=== PATIENT | male | born 1950 | race Caucasian/White ===

== ENCOUNTER 2024-03-17 11:38 | Observation (INO) | payer MEDICARE, BC ==
[2024-03-17] MEDS ORDERED: Sodium Chloride 0.9% 10 ML Syringe FLUSH PRN ×2 (11:47→11:52)
[2024-03-17] MEDS: Iopamidol 755 Mg/ML 100 ML Bottle IVPUSH ONE (12:06)
[2024-03-17] MEDS ORDERED: Sodium Chloride 0.9% 100 ML IV SCH (12:15)
[2024-03-17 12:54] LABS: BASOPHILS ABSOLUTE AUTO 0.1 K/mm3 (0.0-0.2); BASOPHILS PERCENT AUTO 0.6 % (0.0-1.0); EOSINOPHILS ABSOLUTE AUTO 0.1 K/mm3 (0.0-0.4); EOSINOPHILS PERCENT AUTO 0.6 % (0.0-6.0); HEMATOCRIT 44.7 % (42.0-52.0); HEMOGLOBIN 14.7 gm/dl (14.0-18.0); IMMATURE GRAN ABSOLUTE AUTO 0.03 K/mm3 (0.00-0.05); IMMATURE GRAN PERCENT AUTO 0.3 % (0.0-0.4); MEAN CORPUSCULAR HEMOGLOBIN 30.1 pg (28.0-32.0); MEAN CORPUSCULAR HGB CONC 32.9 g/dl (32.0-36.0); MEAN CORPUSCULAR VOLUME 91.4 fl (83.0-99.0); MEAN PLATELET VOLUME 9.3 fl (9.4-12.4); MONOCYTES ABSOLUTE AUTO 0.5 K/mm3 (0.0-0.8); MONOCYTES PERCENT AUTO 4.2 % (0.0-8.0); NEUTROPHILS ABSOLUTE AUTO 9.2 K/mm3 (1.8-7.7); NEUTROPHILS PERCENT AUTO 85.3 % (41.0-71.0); PLATELET COUNT,PLT 316 K/mm3 (150-400); RED BLOOD CELL COUNT 4.89 M/mm3 (4.52-5.90); WHITE BLOOD CELL COUNT,WBC 10.77 K/mm3 (3.9-11.3)
[2024-03-17 13:03] LABS: INR 1.07; PROTHROMBIN TIME 11.3 SECONDS (9.7-12.0)
[2024-03-17 13:08] LABS: ALBUMIN 3.5 g/dl (3.4-5.0); ANION GAP 12.4 (5-15); BILIRUBIN TOTAL 0.5 mg/dL (0.2-1.0); BUN/CREATININE RATIO 17.7 (14-18); CALCIUM 8.8 mg/dL (8.5-10.1); CREATININE 1.3 mg/dL (0.7-1.3); EST CRCL DRUG DOSING (CG) 55.49 mL/min; MAGNESIUM 1.9 mg/dL (1.8-2.4); POTASSIUM,K 4.4 mEq/L (3.5-5.1); PROTEIN TOTAL,TP 6.9 g/dl (6.4-8.2)
[2024-03-17] MEDS: Sodium Chloride 0.9% 500 ML IV SCH (13:15)
[2024-03-17 13:47] LABS: APPEARANCE,URINE CLEAR (Clear); BILIRUBIN,URINE NEGATIVE (Negative); COLOR,URINE YELLOW (Yellow); GLUCOSE,URINE NEGATIVE (Negative); KETONES,URINE NEGATIVE (Negative); LEUKOCYTE ESTERASE,URINE NEGATIVE (Negative); NITRITE,URINE NEGATIVE (Negative); OCCULT BLOOD,URINE NEGATIVE (Negative); PH,URINE 7.5 (5.0-8.0); PROTEIN,URINE NEGATIVE (Negative); UROBILINOGEN,URINE 0.2 (0.2-1.0)
[2024-03-17] MEDS: Clopidogrel 75 MG Tab PO ONE (14:29)
[2024-03-17] MEDS: Aspirin 81 MG Tab.Chew PO ONE (14:29)
[2024-03-17] MEDS: atorvaSTATin 40 MG Tab PO ONE (14:29)
[2024-03-17 14:55] LABS: CHOLESTEROL HDL 54 mg/dL (40-59); CHOLESTEROL LDL DIRECT 136 mg/dL (<100); CHOLESTEROL TOTAL 205 mg/dL (<200); TRIGLYCERIDES 92 mg/dL (<150)
[2024-03-17] MEDS ORDERED: Docusate Sodium 100 MG Cap PO PRN (14:58)
[2024-03-17] MEDS ORDERED: Ondansetron 4 MG Tab.DIS PO PRN (14:58)
[2024-03-17] MEDS ORDERED: Acetaminophen 325 MG Tab PO PRN (14:58)
[2024-03-17 15:39] LABS: TSH 1.7 uIU/mL (0.358-3.74)
[2024-03-17 16:31] LABS: HEMOGLOBIN A1C 5.9 %
[2024-03-18 05:32] LABS: BASOPHILS ABSOLUTE AUTO 0.1 K/mm3 (0.0-0.2); EOSINOPHILS ABSOLUTE AUTO 0.2 K/mm3 (0.0-0.4); EOSINOPHILS PERCENT AUTO 2.9 % (0.0-6.0); HEMATOCRIT 41.6 % (42.0-52.0); HEMOGLOBIN 13.7 gm/dl (14.0-18.0); IMMATURE GRAN ABSOLUTE AUTO 0.02 K/mm3 (0.00-0.05); IMMATURE GRAN PERCENT AUTO 0.3 % (0.0-0.4); LYMPHOCYTES ABSOLUTE AUTO 1.2 K/mm3 (1.0-4.8); MEAN CORPUSCULAR HEMOGLOBIN 29.8 pg (28.0-32.0); MEAN CORPUSCULAR HGB CONC 32.9 g/dl (32.0-36.0); MEAN CORPUSCULAR VOLUME 90.4 fl (83.0-99.0); MEAN PLATELET VOLUME 9.2 fl (9.4-12.4); MONOCYTES ABSOLUTE AUTO 0.5 K/mm3 (0.0-0.8); MONOCYTES PERCENT AUTO 6.6 % (0.0-8.0); NEUTROPHILS ABSOLUTE AUTO 5.3 K/mm3 (1.8-7.7); NEUTROPHILS PERCENT AUTO 73.2 % (41.0-71.0); PLATELET COUNT,PLT 307 K/mm3 (150-400); WHITE BLOOD CELL COUNT,WBC 7.25 K/mm3 (3.9-11.3)
[2024-03-18 05:52] LABS: BILIRUBIN TOTAL 0.6 mg/dL (0.2-1.0); BUN/CREATININE RATIO 16.2 (14-18); CALCIUM 8.6 mg/dL (8.5-10.1); CREATININE 1.3 mg/dL (0.7-1.3); EST CRCL DRUG DOSING (CG) 50.56 mL/min; PROTEIN TOTAL,TP 6.1 g/dl (6.4-8.2)
[2024-03-18 08:41] VITALS: BP 150/93; PULSE 75
[2024-03-18] MEDS: Clopidogrel 75 MG Tab PO SCH (08:51)
[2024-03-18] MEDS: Aspirin 81 MG Tab.Chew PO SCH (08:51)
[2024-03-18] MEDS ORDERED: atorvaSTATin 40 MG Tab PO SCH (21:00)
== END 2024-03-18 10:31 | disposition home or self-care (01) ==
LOC: JD.ED 11:38 → INTOOBSV 14:27 → JD.MS 14:27
PROVIDERS: ADMIT Family Medicine; ATTEND Family Medicine
DX: G45.9 Transient cerebral ischemic attack, unspecified (principal); I67.9 Cerebrovascular disease, unspecified; I10 Essential (primary) hypertension; R73.9 Hyperglycemia, unspecified; F17.210 Nicotine dependence, cigarettes, uncomplicated; Z85.46 Personal history of malignant neoplasm of prostate; Z79.82 Long term (current) use of aspirin; Z79.899 Other long term (current) drug therapy; Z88.0 Allergy status to penicillin; Z88.8 Allergy status to other drugs, medicaments and biological substances
CPT/HCPCS: 36415; 70450; 70496; 70498; 70551; 80053; 80061; 81003; 82947; 83036; 83735; 84443; 84484; 85025; 85610; 85730; 93005; A9270; G0378; J7040; Q9967

== ENCOUNTER 2024-10-28 21:50 | Emergency (ER) | payer MEDICARE, BC ==
[2024-10-28 21:58] VITALS: BP 135/83; PULSE 80
[2024-10-28] MEDS: Oxymetazoline 0.05% Nasal Spray 30 ML Bottle NAS ONE (22:29)
== END 2024-10-29 01:03 | disposition home or self-care (01) ==
LOC: JD.ED 21:50
DX: R04.0 Epistaxis (principal); I10 Essential (primary) hypertension; E78.00 Pure hypercholesterolemia, unspecified; F17.210 Nicotine dependence, cigarettes, uncomplicated; Z79.82 Long term (current) use of aspirin; Z79.899 Other long term (current) drug therapy; Z88.8 Allergy status to other drugs, medicaments and biological substances; Z88.0 Allergy status to penicillin
CPT/HCPCS: 99283; A9270

== ENCOUNTER 2024-10-30 23:01 | Emergency (ER) | payer MEDICARE, BC ==
[2024-10-31] MEDS ORDERED: Sodium Chloride 0.9% 10 ML Syringe FLUSH PRN (00:44)
[2024-10-31 00:53] LABS: BASOPHILS ABSOLUTE AUTO 0.1 K/mm3 (0.0-0.2); BASOPHILS PERCENT AUTO 0.7 % (0.0-1.0); EOSINOPHILS ABSOLUTE AUTO 0.4 K/mm3 (0.0-0.4); EOSINOPHILS PERCENT AUTO 3.5 % (0.0-6.0); IMMATURE GRAN ABSOLUTE AUTO 0.02 K/mm3 (0.00-0.05); IMMATURE GRAN PERCENT AUTO 0.2 % (0.0-0.4); LYMPHOCYTES ABSOLUTE AUTO 2.2 K/mm3 (1.0-4.8); LYMPHOCYTES PERCENT AUTO 21.6 % (24.0-44.0); MEAN PLATELET VOLUME 9.1 fl (9.4-12.4); MONOCYTES ABSOLUTE AUTO 0.8 K/mm3 (0.0-0.8); MONOCYTES PERCENT AUTO 7.5 % (0.0-8.0); NEUTROPHILS ABSOLUTE AUTO 6.8 K/mm3 (1.8-7.7); NEUTROPHILS PERCENT AUTO 66.5 % (41.0-71.0); NRBC ABSOLUTE 0.00 (0.00-0.02); NRBC PERCENT 0.0 % (0.0-0.2); PLATELET COUNT,PLT 366 K/mm3 (150-400); RED BLOOD CELL COUNT 4.85 M/mm3 (4.52-5.90); WHITE BLOOD CELL COUNT,WBC 10.19 K/mm3 (3.9-11.3)
[2024-10-31 01:14] LABS: A/G RATIO 1.0 (1-2); ALANINE AMINOTRANSFERASE,ALT 28 U/L (16-63); ASPARTATE AMNIOTRANSFERASE,AST 15 U/L (15-37); BILIRUBIN TOTAL 0.4 mg/dL (0.2-1.0); BLOOD UREA NITROGEN,BUN 26 mg/dL (7-18); CARBON DIOXIDE,CO2 28 mEq/L (21-32); CHLORIDE,CL 104 mEq/L (98-107); CREATININE 1.1 mg/dL (0.7-1.3); ESTIMATED GFR 70 mL/min (>60); GLUCOSE RANDOM 107 mg/dL (70-99); POTASSIUM,K 3.9 mEq/L (3.5-5.1); PROTEIN TOTAL,TP 7.4 g/dl (6.4-8.2); SODIUM,NA 141 mEq/L (136-145)
[2024-10-31] MEDS: Iopamidol 612 MG/ML 100 ML Bottle IVPUSH ONE (02:00)
[2024-10-31 04:10] VITALS: BP 153/85; PULSE 75
== END 2024-10-31 04:00 | disposition home or self-care (01) ==
LOC: JD.ED 23:01
DX: R04.0 Epistaxis (principal); H60.92 Unspecified otitis externa, left ear; E78.00 Pure hypercholesterolemia, unspecified; I10 Essential (primary) hypertension; Z88.8 Allergy status to other drugs, medicaments and biological substances; Z88.0 Allergy status to penicillin; Z79.82 Long term (current) use of aspirin; Z79.899 Other long term (current) drug therapy
CPT/HCPCS: 36415; 70450; 70487; 80053; 85025; 96361; 96374; 99284; A9270; J7030; Q9967; J1171

== ENCOUNTER 2024-11-20 08:24 | Emergency (ER) | payer MEDICARE, BC ==
[2024-11-20] MEDS ORDERED: Sodium Chloride 0.9% 10 ML Syringe FLUSH PRN (08:48)
[2024-11-20 09:25] LABS: BASOPHILS ABSOLUTE AUTO 0.1 K/mm3 (0.0-0.2); BASOPHILS PERCENT AUTO 1.2 % (0.0-1.0); EOSINOPHILS ABSOLUTE AUTO 0.2 K/mm3 (0.0-0.4); EOSINOPHILS PERCENT AUTO 2.9 % (0.0-6.0); IMMATURE GRAN ABSOLUTE AUTO 0.02 K/mm3 (0.00-0.05); IMMATURE GRAN PERCENT AUTO 0.3 % (0.0-0.4); LYMPHOCYTES ABSOLUTE AUTO 1.0 K/mm3 (1.0-4.8); LYMPHOCYTES PERCENT AUTO 15.0 % (24.0-44.0); MEAN PLATELET VOLUME 8.6 fl (9.4-12.4); MONOCYTES ABSOLUTE AUTO 0.4 K/mm3 (0.0-0.8); MONOCYTES PERCENT AUTO 5.8 % (0.0-8.0); NEUTROPHILS ABSOLUTE AUTO 4.9 K/mm3 (1.8-7.7); NEUTROPHILS PERCENT AUTO 74.8 % (41.0-71.0); NRBC ABSOLUTE 0.00 (0.00-0.02); NRBC PERCENT 0.0 % (0.0-0.2); PLATELET COUNT,PLT 361 K/mm3 (150-400); RED BLOOD CELL COUNT 3.86 M/mm3 (4.52-5.90); WHITE BLOOD CELL COUNT,WBC 6.53 K/mm3 (3.9-11.3)
[2024-11-20 09:44] VITALS: BP 131/75; PULSE 65
[2024-11-20 09:48] LABS: INR 1.03
[2024-11-20 09:49] LABS: PTT,PARTIAL THROMBOPLSTIN TIME 26.0 SECONDS (21.7-31.4)
[2024-11-20 09:51] LABS: A/G RATIO 1.0 (1-2); ALANINE AMINOTRANSFERASE,ALT 24.0 U/L (16-63); ASPARTATE AMNIOTRANSFERASE,AST 15.0 U/L (15-37); BILIRUBIN TOTAL 0.3 mg/dL (0.2-1.0); BLOOD UREA NITROGEN,BUN 28.0 mg/dL (7-18); CARBON DIOXIDE,CO2 30.0 mEq/L (21-32); CHLORIDE,CL 107.0 mEq/L (98-107); CREATININE 1.5 mg/dL (0.7-1.3); EST CRCL DRUG DOSING (CG) 45.51 mL/min; ESTIMATED GFR 48.0 mL/min (>60); GLUCOSE RANDOM 105.0 mg/dL (70-99); POTASSIUM,K 4.4 mEq/L (3.5-5.1); PROTEIN TOTAL,TP 6.2 g/dl (6.4-8.2); SODIUM,NA 143.0 mEq/L (136-145); TROPONIN I HIGH SENSITIVITY 9.0 pg/mL (<=76)
== END 2024-11-20 10:55 | disposition home or self-care (01) ==
LOC: JD.ED 08:24
DX: R20.2 Paresthesia of skin (principal); I10 Essential (primary) hypertension; E78.00 Pure hypercholesterolemia, unspecified; F17.210 Nicotine dependence, cigarettes, uncomplicated; Z79.82 Long term (current) use of aspirin; Z88.0 Allergy status to penicillin; Z88.8 Allergy status to other drugs, medicaments and biological substances; Z86.73 Personal history of transient ischemic attack (TIA), and cerebral infarction without residual deficits; Z79.899 Other long term (current) drug therapy
CPT/HCPCS: 36415; 70450; 70450-26; 80053; 84484; 85025; 85610; 85730; 93005; 93010; 99283; 99284